=== PATIENT | female | born 1970 | race African-American/Black ===

== ENCOUNTER 2018-05-24 16:16 | Emergency (ER) | payer MEDICAID ==
[~2018-05-24] VITALS: Ht 172.7 cm; Wt 109.0 kg
[2018-05-24] MEDS ORDERED: KEPP500 PO (16:23)
[2018-05-24] MEDS ORDERED: SODIUM CHLORIDE 0.9% 1,000 ML IV ONE (16:32)
[2018-05-24] MEDS ORDERED: ONDANSETRON HCL 4MG/2ML VIAL IV STA (16:32)
[2018-05-24] MEDS ORDERED: FENTANYL CITRATE/PF 50MCG/ML 2ML VIAL IV ONE (16:45)
[2018-05-24] MEDS ORDERED: LORAZEPAM 2MG/ML CPJ IM ONE (16:45)
[2018-05-24] MEDS ORDERED: KETOROLAC 30MG/ML VIAL IM ONE (16:45)
[2018-05-24 17:22] LABS: BASOPHILS % 0.9 % (0.0-2.0); CHLORIDE 111 mEq/L (98-107); EOSINOPHILS % 1.6 % (0.0-5.0); HEMATOCRIT. 38.2 % (36.0-48.0); HEMOGLOBIN. 12.8 g/dL (12.0-16.0); LYMPHOCYTES % 45.3 % (20.0-50.0); MEAN CORPUSCULAR HEMOGLOBIN 30.8 pg (28.0-32.0); MEAN CORPUSCULAR VOLUME 91.7 fL (81.0-99.0); MEAN PLATELET VOLUME 9.8 fl (7.4-10.4); MONOCYTES % 7.1 % (2.0-8.0); NEUTROPHILS % 45.1 % (40.0-76.0); PLATELET 293 x1000/uL (130-400); RED BLOOD CELL COUNT 4.16 mill/uL (4.2-5.4); RED CELL DISTRIBUTION WIDTH 15.2 % (11.6-14.6)
[2018-05-24 17:23] LABS: INR 1.1; PROTHROMBIN TIME 11.1 sec (9.4-11.6)
[2018-05-24 17:24] LABS: HCG SCREEN NEGATIVE
[2018-05-24 17:26] LABS: ETHANOL BLOOD 131 mg/dL
[2018-05-24] MEDS ORDERED: LORAZEPAM 2MG/ML CPJ IV ONE (19:45)
[2018-05-24 20:30] VITALS: BP 100/60
== END 2018-05-24 21:35 | disposition home or self-care (01) ==
LOC: ER 16:32
DX: S30.0XXA Contusion of lower back and pelvis, initial encounter (principal); F10.10 Alcohol abuse, uncomplicated; Z88.0 Allergy status to penicillin; Z88.5 Allergy status to narcotic agent; W01.0XXA Fall on same level from slipping, tripping and stumbling without subsequent striking against object, initial encounter; Y93.89 Activity, other specified; Y92.89 Other specified places as the place of occurrence of the external cause; Y99.8 Other external cause status
CPT/HCPCS: 36415; 74176; 80053; 83690; 84484; 84703; 85025; 85610; 96372; 96374; 96375; 99285; G0482; J1885; J2060; J2405; J3010; J7030; Z7610